=== PATIENT | female | born 1980 | race Caucasian/White ===

== ENCOUNTER → 2018-10-16 | Outpatient (CLI) | payer OTHER ==
[~2018-10-16] MED LIST: CBD Oil; CETI10CA PO; DULO60CA7 PO; HYDR-3237 PO; LEVO125T PO; LEVO137T3 PO; MAGN500C9 PO; PRAV10TA2 PO; VIT1TABL83 PO
== END | disposition home or self-care (01) ==
LOC: STAR 14:48
PROVIDERS: ATTEND Surgery
DX: Z02.9 Encounter for administrative examinations, unspecified (principal)

== ENCOUNTER 2018-10-20 09:53 | Day surgery (SDC) | payer OTHER ==
[~2018-10-20] VITALS: Ht 172.7 cm; Wt 113.1 kg
[2018-10-20 10:18] VITALS: BP 146/83
[2018-10-20] MEDS ORDERED: LACTATED RINGERS 1,000 ML IV SCH (10:26)
[2018-10-20] MEDS ORDERED: ONDANSETRON 2MG/ML, 2ML IV PRN (10:30)
[2018-10-20] MEDS ORDERED: hydrALAzine 20 MG/ML, 1ML IV PRN (10:30)
[2018-10-20] MEDS ORDERED: LABETALOL 5MG/ML, 20ML IV PRN (10:30)
[2018-10-20] MEDS ORDERED: PROPOFOL 10 MG/ML, 20ML ONE ×2 (10:44)
== END 2018-10-20 12:50 | disposition home or self-care (01) ==
LOC: OUT 09:53
PROVIDERS: ATTEND Surgery
DX: K63.89 Other specified diseases of intestine (principal); K64.8 Other hemorrhoids; E03.9 Hypothyroidism, unspecified; E78.5 Hyperlipidemia, unspecified; G89.4 Chronic pain syndrome; E11.9 Type 2 diabetes mellitus without complications; G43.909 Migraine, unspecified, not intractable, without status migrainosus; Z98.890 Other specified postprocedural states; Z79.890 Hormone replacement therapy; Z79.899 Other long term (current) drug therapy; Z72.89 Other problems related to lifestyle; Z87.891 Personal history of nicotine dependence
CPT/HCPCS: 45378; 81025; J2704; J7120